=== PATIENT | female | born 1990 | race Caucasian/White ===

== ENCOUNTER 2018-01-01 12:06 | Emergency (ER) | payer MEDICAID, SELFPAY ==
[2018-01-01 12:23] VITALS: BP 123/84; PULSE 98; RESP 18; TEMP 36.8; O2SAT 99; BMI 26.4
--- NOTE | 2018-01-01 12:43 | HMH.EDUTC ---
[facility] [place] Disposition Clinical Impression: Dysmenorrhea Disposition: Home, Self-Care Condition on Discharge: Good Instructions: DI for Dysmenorrhea Additional Instructions: Start taking multivitamin. Follow up with Dr Fuchs. Referrals: Gael Hooper [Primary Care Provider] - Lam Fuchs MD [Staff Physician] - Time of Disposition: 12:47 Medical Decision Making - Jaime Inquiry Pt receiving controlled substance: No Vital Signs: 01/01/18 12:23 Temperature 98.2 F Temperature Source Temporal Artery Scan Pulse Rate [Right Radial] 98 H Respiratory Rate 18 Blood Pressure [Right Arm] 123/84 Blood Pressure Mean [Right Arm] 97 Blood Pressure Source [Right Arm] Automatic Cuff Blood Pressure Position [Right Arm] Sitting 02 Sat by Pulse Oximetry 99 Oxygen Delivery Method Room Air Orders (Tests/Meds): ORDERS Category Date Time Status Beta HCG, Quant [HCG,Quantitative] Stat Lab 01/01/18 12:29 Ordered CBC w/Auto Diff [Complete Blood Count Auto Diff] Stat Lab 01/01/18 12:28 Ordered CMP [Comprehensive Metabolic Panel] Stat Lab 01/01/18 12:29 Ordered TSH [Thyroid Stimulating Hormone] Stat Lab 01/01/18 12:29 Ordered [facility] [place] HPI - General Stated complaint: on Period for 2 months Time Seen by Provider: 01/01/18 12:25 Mode of Arrival: Family Vehicle Source of Information: Patient, Parent(s) Limitations: No Limitations Description of Symptoms (Recalled from Triage Doc. by RN): PT C/O ABNORMAL PERIODS,HEADACHE, INSTANT BRUISING WHEN HITTING ANYTHING. HEENT Symptoms (Recalled from RN notes): Yes (HEADACHE) Resp Symptoms (Recalled from RN notes): No Skin Symptoms (Recalled from RN notes): Yes (BRUISING) MS Symptoms (Recalled from RN notes): No Functional Status (Recalled from RN notes): NA - History of Present Illness Provider Complaint: Patient states she stays tired, bruises easily, has been having a period for two months and has a headache. Saw Dr Fuchs for similar problems 2 years ago but no cause was found. Saw Dr Hooper a few months ago and had normal labs. Associated symptoms: weakness Treatments prior to arrival: none - Related Data Allergies Allergy/AdvReac Type Severity Reaction Status Date / Time No Known Allergies Allergy Verified 01/01/18 12:36 - Worker's Comp Is this a Worker's Comp case?: No [facility] History I have reviewed the patient's past medical history: Yes Medical History: Denies:: Cancer, Diabetes Mellitus Type 1, Diabetes Mellitus Type 2, MRSA Amputation: No Fractures: No - Social History Smoking Status: Current every day smoker Tobacco Type: cigarettes Alcohol Intake: never - Psychiatric History Expresses thoughts of harming self/others: None Suicide Plan Description: No Plan ROS Obtained: Yes All systems reviewed & no additional complaints - Constitutional Constitutional: Reports fatigue, Reports malaise - Genitourinary Female Genitourinary: Reports as per HPI, Reports abnormal vaginal bleeding - Integumentary/Breasts Skin/Breast: Reports unusual bruising Physical Exam - General General appearance: alert, in no apparent distress - Head Head exam: atraumatic, normocephalic, normal inspection - Eye Eye exam: Present: normal appearance, PERRL, EOMI - ENT ENT exam: Present: normal exam, normal oropharynx, mucous membranes moist, TM's normal bilaterally, normal external ear exam - Neck Neck exam: Present: normal inspection, full ROM, trachea midline. Absent: meningismus, lymphadenopathy - Chest Chest inspection: Present: normal inspection, symmetric chest wall rise. Absent: tenderness - Respiratory Respiratory exam: Present: normal lung sounds bilaterally. Absent: respiratory distress - Cardiovascular Cardiovascular exam: Present: regular rate, normal rhythm. Absent: JVD - Abdominal Exam Abdominal exam: Present: soft, normal bowel sounds. Absent: distention, tenderness, guarding - Extremities Exam Extremities exam: Present: nor
--- NOTE | 2018-01-01 12:46 | ED_ITS ---
[facility] [place] Clinical Impression: Dysmenorrhea Disposition: Home, Self-Care Condition on Discharge: Good Instructions: DI for Dysmenorrhea Additional Instructions: Start taking multivitamin. Follow up with Dr Fuchs. Referrals: Gael Hooper [Primary Care Provider] - Lam Fuchs MD [Staff Physician] - Time of Disposition: 12:47 Medical Decision Making - Jaime Inquiry Pt receiving controlled substance: No Vital Signs: 01/01/18 12:23 Temperature 98.2 F Temperature Source Temporal Artery Scan Pulse Rate [Right Radial] 98 H Respiratory Rate 18 Blood Pressure [Right Arm] 123/84 Blood Pressure Mean [Right Arm] 97 Blood Pressure Source [Right Arm] Automatic Cuff Blood Pressure Position [Right Arm] Sitting 02 Sat by Pulse Oximetry 99 Oxygen Delivery Method Room Air Orders (Tests/Meds): ORDERS Category Date Time Status Beta HCG, Quant [HCG,Quantitative] Stat Lab 01/01/18 12:29 Ordered CBC w/Auto Diff [Complete Blood Count Auto Diff] Stat Lab 01/01/18 12:28 Ordered CMP [Comprehensive Metabolic Panel] Stat Lab 01/01/18 12:29 Ordered TSH [Thyroid Stimulating Hormone] Stat Lab 01/01/18 12:29 Ordered [facility] [place] - General Stated complaint: on Period for 2 months Time Seen by Provider: 01/01/18 12:25 Mode of Arrival: Family Vehicle Source of Information: Patient, Parent(s) Limitations: No Limitations Description of Symptoms (Recalled from Triage Doc. by RN): PT C/O ABNORMAL PERIODS,HEADACHE, INSTANT BRUISING WHEN HITTING ANYTHING. HEENT Symptoms (Recalled from RN notes): Yes (HEADACHE) Resp Symptoms (Recalled from RN notes): No Skin Symptoms (Recalled from RN notes): Yes (BRUISING) MS Symptoms (Recalled from RN notes): No Functional Status (Recalled from RN notes): NA - History of Present Illness Provider Complaint: Patient states she stays tired, bruises easily, has been having a period for two months and has a headache. Saw Dr Fuchs for similar problems 2 years ago but no cause was found. Saw Dr Hooper a few months ago and had normal labs. Associated symptoms: weakness Treatments prior to arrival: none - Related Data Allergies Allergy/AdvReac Type Severity Reaction Status Date / Time No Known Allergies Allergy Verified 01/01/18 12:36 - Worker's Comp Is this a Worker's Comp case?: No [facility] History I have reviewed the patient's past medical history: Yes Medical History: Denies:: Cancer, Diabetes Mellitus Type 1, Diabetes Mellitus Type 2, MRSA Amputation: No Fractures: No - Social History Smoking Status: Current every day smoker Tobacco Type: cigarettes Alcohol Intake: never - Psychiatric History Expresses thoughts of harming self/others: None Suicide Plan Description: No Plan ROS Obtained: Yes All systems reviewed & no additional complaints - Constitutional Constitutional: Reports fatigue, Reports malaise - Genitourinary Female Genitourinary: Reports as per HPI, Reports abnormal vaginal bleeding - Integumentary/Breasts Skin/Breast: Reports unusual bruising Physical Exam - General General appearance: alert, in no apparent distress - Head Head exam: atraumatic, normocephalic, normal inspection - Eye Eye exam: Present: normal appearance, PERRL, EOMI - ENT ENT exam: Present: normal exam, normal oropharynx, muc
[2018-01-01 12:48] VITALS: BP 119/85; PULSE 92; RESP 18; TEMP 36.8; O2SAT 100
[2018-01-01 12:49] LABS: Basophils % 0.6 % (0.1-2.0); Eosinophils # 0.2 K/mm3 (0.0-0.4); Eosinophils % 3.8 % (0.1-12.0); Hematocrit 39.7 % (37.0-47.0); Hemoglobin 12.7 g/dL (12.2-16.2); Lymphocytes # 1.7 K/mm3 (0.7-4.5); Lymphocytes % 29.1 K/mm3 (10-50); Mean Corpuscular HGB Conc 31.9 g/dL (31.8-35.4); Mean Corpuscular Hemoglobin 28.8 pg (27.0-31.2); Mean Corpuscular Volume 90.4 fl (81-99); Mean Platelet Volume 7.7 fl (7.4-10.4); Monocytes # 0.4 K/mm3 (0.1-1.0); Monocytes % 6.6 % (1.7-9.3); Neutrophils # 3.5 K/mm3 (1.8-7.8); Neutrophils % 59.9 % (37.0-80.0); Platelet Count 312 K/mm3 (142-424); Red Blood Count 4.39 M/mm3 (4.20-5.40); White Blood Count 5.8 K/mm3 (4.8-10.8)
[2018-01-01 13:11] LABS: Alanine Aminotransferase 20 U/L (12-78); Albumin Level 3.9 gm/dL (3.4-5.0); Albumin/Globulin Ratio 1.1 (1.1-1.8); Alkaline Phosphatase 80 U/L (46-116); Anion Gap 10.7 mEq/L (5-15); Aspartate Amino Transferase 13 U/L (15-37); Bilirubin,Total 0.2 mg/dL (0.2-1.0); Blood Urea Nitrogen 8 mg/dL (7-18); Calcium 8.4 mg/dL (8.5-10.1); Carbon Dioxide 29 mmol/L (21.0-32.0); Chloride 105 mmol/L (98-107); Creatinine Clearance Estimated 120 mL/min (0-300); Creatinine,Serum 0.68 mg/dL (0.55-1.02); Estimated Glomerular Filt Rate 104 ml/min (>60); GFR (African American) 126 ML/MIN (>60); Globulin 3.5 gm/dl (1.3-3.2); Glucose 112 mg/dL (74-106); Potassium 3.7 mmoL/L (3.5-5.1); Sodium 141 mmol/L (136-145); Thyroid Stimulating Hormone 1.52 uIU/ml (0.358-3.740); Total Protein,Serum 7.4 gm/dL (6.4-8.2)
[2018-01-01 13:12] LABS: HCG,Quantitative 0 mIU/mL
== END 2018-01-01 12:48 | disposition home or self-care (01) ==
PROVIDERS: Emergency Provider Physician Assistant; PCP Family Medicine
DX: N94.6 Dysmenorrhea, unspecified (principal); F17.210 Nicotine dependence, cigarettes, uncomplicated
CPT/HCPCS: 80053; 84443; 84702; 85025; 99201

== ENCOUNTER → 2018-05-23 09:44 | Outpatient (POV) | payer MEDICAID, SELFPAY | PROVIDERS: PCP Family Medicine; Visit Provider Otolaryngology | DX: Z00.00 Encounter for general adult medical examination without abnormal findings (principal) ==

== ENCOUNTER → 2018-06-23 11:00 | Outpatient (CLI) | payer MEDICAID, SELFPAY ==
--- NOTE | 2018-06-23 11:07 | XR_ITS ---
XR chest 2V HISTORY: ITS.REASON: PLEURITIC CHEST PAIN, SOA ORDERING PHYSICIAN: Tatianna Yoo PATIENT AGE: 27 years COMPARISON: None FINDINGS: The cardiomediastinal silhouette and pulmonary vascularity are within normal limits. The lungs are clear without infiltrates, suspicious nodules, or pleural effusions. No acute bony abnormalities. IMPRESSION: Negative chest, no acute finding
[2018-06-23 13:15] LABS: Basophils % 0.1 % (0.1-2.0); Eosinophils # 0.1 K/mm3 (0.0-0.4); Eosinophils % 0.4 % (0.1-12.0); Hematocrit 39.4 % (37.0-47.0); Hemoglobin 12.3 g/dL (12.2-16.2); Lymphocytes # 1.2 K/mm3 (0.7-4.5); Lymphocytes % 6.7 K/mm3 (10-50); Mean Corpuscular HGB Conc 31.3 g/dL (31.8-35.4); Mean Corpuscular Hemoglobin 28.4 pg (27.0-31.2); Mean Corpuscular Volume 90.7 fl (81-99); Monocytes # 0.4 K/mm3 (0.1-1.0); Neutrophils # 16.3 K/mm3 (1.8-7.8); Neutrophils % 90.9 % (37.0-80.0); Platelet Count 339 K/mm3 (142-424); Red Blood Count 4.34 M/mm3 (4.20-5.40); Red Cell Distribution Width 13.6 % (11.5-17.5)
[2018-06-23 13:17] LABS: MANUAL DIFFERENTIAL MANUAL DIFFERENTIAL (MANUAL DIFF)
[2018-06-23 13:42] LABS: Anion Gap 13.3 mEq/L (5-15); Blood Urea Nitrogen 4 mg/dL (7-18); Carbon Dioxide 27 mmol/L (21.0-32.0); Chloride 107 mmol/L (98-107); Creatinine,Serum 0.71 mg/dL (0.55-1.02); Estimated Glomerular Filt Rate 99 ml/min (>60); GFR (African American) 119 ML/MIN (>60); Glucose 119 mg/dL (74-106); Potassium 4.3 mmoL/L (3.5-5.1); Sodium 143 mmol/L (136-145)
[2018-06-23 14:11] LABS: D-Dimer < 100 ng/mL (0-400)
[2018-06-23 18:59] LABS: Lymphocytes % 7 % (10-50); Neutrophils % 86 % (42-76); Platelet Estimate Normal; RBC Morphology Normal; Total Cells Counted 100
== END ==
PROVIDERS: PCP Physician Assistant; Visit Provider Physician Assistant
DX: R06.02 Shortness of breath (principal); R07.1 Chest pain on breathing
CPT/HCPCS: 36415; 71046; 80048; 85007; 85025; 85378

== ENCOUNTER → 2018-12-04 10:53 | Outpatient (CLI) | payer MEDICAID, SELFPAY | PROVIDERS: PCP Physician Assistant; Visit Provider Physician Assistant | DX: R50.9 Fever, unspecified (principal) | CPT/HCPCS: 87275; 87276 ==

== ENCOUNTER 2020-07-24 12:46 | Emergency (ER) | payer MEDICAID, SELFPAY ==
--- NOTE | 2020-07-24 13:10 | XR_ITS ---
PROCEDURE: XR ANKLE RT MIN 3V CLINICAL INDICATION: pain/swelling right ankle COMPARISON: No exams were available for comparison FINDINGS: No fracture or dislocation. No lytic or blastic change. There is normal mineralization. The joint spaces are well-preserved. No significant degenerative/arthritic changes. No erosive changes evident. Other findings:None. IMPRESSION: No acute findings. Dictated by: Pierce Bender MD 07/24/2020 15:57 Pierce Bender MD in [place] 07/24/2020 15:58
[2020-07-24 13:15] VITALS: BP 107/71; PULSE 83; RESP 18; TEMP 36.7; O2SAT 98; BMI 25.4
--- NOTE | 2020-07-24 13:28 | HMH.EDUTC ---
[facility] [place] Disposition Clinical Impression: Ankle sprain Qualifiers: Encounter type: initial encounter Involved ligament of ankle: other ligament Laterality: right Qualified Code(s): S93.491A - Sprain of other ligament of right ankle, initial encounter Disposition: Home, Self-Care Condition on Discharge: Good Instructions: How to Use Crutches, Ankle Sprain, DI for Ankle Sprain Additional Instructions: *weight bearing as tolerated *RICE, Rest the extremity, Ice 15-20 minutes 3-4 times daily, Compress- wear the perico wrap as discussed as much as possible to help reduce swelling and pain, Elevate the extremity when at rest *Perico wrap is for support and help control swelling, use it except in the shower. Be sure that is not to tight but not to loose either *Elevate when resting *Ibuprofen every 6-8 hours as needed for pain an inflammation. If need something more can take Tylenol in between doses of Ibuprofen to help Call back to the [facility] later today for the official reading of your xray FOllow up with Family Doctor if no improvement or any worsening of symptoms Straight to ER if any life threatening symptoms Referrals: Gael Hooper [Primary Care Provider] - As needed Forms: Work/School Release Time of Disposition: 14:49 Medical Decision Making - Jaime Inquiry Pt receiving controlled substance: No Jaime was queried for this patient: No Vital Signs: 07/24/20 13:15 07/24/20 14:53 Temperature 98.0 F 98.0 F Temperature Source Oral Pulse Rate 83 Pulse Rate [Right Brachial] 83 Respiratory Rate 18 18 Blood Pressure 107/71 L Blood Pressure [Right Arm] 107/71 L Blood Pressure Mean [Right Arm] 83 Blood Pressure Source [Right Arm] Automatic Cuff Blood Pressure Position [Right Arm] Sitting 02 Sat by Pulse Oximetry 98 Oxygen Delivery Method Room Air - Lab Data Lab Results 07/24/20 13:10: Uric Acid 3.6 - Radiology Data #1 Image(s): Ankle Image Reviewed: Yes I reviewed the patient's radiology image Preliminary Findings: No Fracture Seen [facility] [place] HPI - General Stated complaint: rt ankle pain Time Seen by Provider: 07/24/20 13:15 Mode of Arrival: Ambulatory Source of Information: Patient Limitations: No Limitations Description of Symptoms (Recalled from Triage Doc. by RN): PATIENT C/O RIGHT ANKLE SWELLING AND PAIN THAT STARTED THIS MORNING. NO KNOWN INJURY HEENT Symptoms (Recalled from RN notes): No Resp Symptoms (Recalled from RN notes): No Skin Symptoms (Recalled from RN notes): No MS Symptoms (Recalled from RN notes): Yes Functional Status (Recalled from RN notes): WNL - History of Present Illness Provider Complaint: Patient states that she woke up this morning with swelling and pain in her right ankle States tht she doesnt recall doing anything to hurt it but she is unsure States that pain is worse with movement and when she tries to walk - Related Data Home Medications Medication Instructions Recorded Confirmed No Known Home Medications 07/24/20 07/24/20 Allergies Allergy/AdvReac Type Severity Reaction Status Date / Time No Known Allergies Allergy Verified 03/30/18 16:19 - Worker's Comp Is this a Worker's Comp case?: No [facility] History - Hepatitis A Screen Drug use history?: No High risk sexual behaviors?: No History of sexually transmitted infection?: No Currently employed?: No Childcare worker?: No Do you have indoor plumbing?: Yes Do you have electricity?: Yes Attestation statement:: This patient has been screened for Hepatitis A risk factors. I have reviewed the patient's past medical history: Yes Medical History: Denies:: Cancer, Diabetes Mellitus Type 1, Diabetes Mellitus Type 2, MRSA Other Surgeries: Yes: (x2) Amputation: No Fractures: No - Social History Smoking Status: Current every day smoker Tobacco Type: cigarettes # Packs/Day (cigarettes): 1 Alcohol Intake: never Alcohol Intake Frequency:: other Occupational Status: other Housing: house Fam
[2020-07-24 13:42] LABS: Uric Acid 3.6 mg/dl (2.5-6.2)
[2020-07-24 14:53] VITALS: BP 107/71; PULSE 83; RESP 18; TEMP 36.7; O2SAT 98
== END 2020-07-24 14:55 | disposition home or self-care (01) ==
PROVIDERS: Emergency Provider Nurse Practitioner; PCP Family Medicine
DX: S93.491A Sprain of other ligament of right ankle, initial encounter (principal); F17.210 Nicotine dependence, cigarettes, uncomplicated
CPT/HCPCS: 29515; 73610; 84550; 99202

== ENCOUNTER 2021-05-26 17:53 | Emergency (ER) | payer MEDICAID, SELFPAY ==
[2021-05-26 18:40] VITALS: BP 103/58; PULSE 61; RESP 17; TEMP 37.1; O2SAT 100; BMI 25.4
[2021-05-26 18:50] VITALS: BP 103/58; PULSE 61; RESP 17; TEMP 37.1; O2SAT 100
[2021-05-26 18:53] LABS: UTC Strep Screen (Rapid) Negative (Negative)
--- NOTE | 2021-05-26 18:55 | HMH.EDUTC ---
[facility] [place] Disposition Clinical Impression: Acute bronchitis Qualifiers: Bronchitis organism: unspecified organism Qualified Code(s): J20.9 - Acute bronchitis, unspecified Disposition: Home, Self-Care Condition on Discharge: Good Instructions: DI for Acute Bronchitis Additional Instructions: Drink plenty of fluids. Take tylenol or ibuprofen for pain or fever. Take the medications as directed. Follow up with your regular doctor. GO TO THE ER FOR ANY WORSENING SYMPTOMS Prescriptions: Brompheniramine/Pseudoephed/Dm [Bromfed Dm Cough Syrup] 5 ml PO Q6HP PRN #240 syrup PRN Reason: Cough Transmission Status: Received by [facility] methylPREDNISolone [Medrol] 4 mg PO DIRECTED 6 Days #21 tab.ds.pk Transmission Status: Received by [facility] Azithromycin [Z-Lucian 250mg Tab*] 250 mg PO UD DOSE PK #6 tab Transmission Status: Received by [facility] Referrals: Duglas Hooper MD [Primary Care Provider] - Forms: Work/School Release Time of Disposition: 19:03 Medical Decision Making - Medical Records Medical records reviewed: No: I reviewed the patient's medical records. - Jaime Inquiry Pt receiving controlled substance: No Vital Signs: 05/26/21 18:40 05/26/21 18:50 Temperature 98.8 F 98.8 F Temperature Source Oral Pulse Rate 61 Pulse Rate [Left] 61 Respiratory Rate 17 17 Blood Pressure 103/58 L Blood Pressure [Right Arm] 103/58 L Blood Pressure Mean [Right Arm] 73 02 Sat by Pulse Oximetry 100 [facility] [place] HPI - General Stated complaint: sore throat cough headache Time Seen by Provider: 05/26/21 18:55 Mode of Arrival: Ambulatory Source of Information: Patient Limitations: No Limitations Description of Symptoms (Recalled from Triage Doc. by RN): Pt c/o cough, sore throat and headache HEENT Symptoms (Recalled from RN notes): Yes Resp Symptoms (Recalled from RN notes): Yes Skin Symptoms (Recalled from RN notes): No MS Symptoms (Recalled from RN notes): No Functional Status (Recalled from RN notes): wnl - History of Present Illness Provider Complaint: She c/o cough, chest congestion for the past 1 week. She denies any fever/chills/body aches. She denies any covid exposure. She refuses a covid test today. - Related Data Previous Rx's Medication Instructions Recorded Azithromycin [Z-Lucian 250mg Tab*] 250 mg PO UD DOSE PK #6 tab 05/26/21 Brompheniramine/Pseudoephed/Dm 5 ml PO Q6HP PRN #240 syrup 05/26/21 [Bromfed Dm Cough Syrup] methylPREDNISolone [Medrol] 4 mg PO DIRECTED 6 Days #21 05/26/21 tab.ds.pk Allergies Allergy/AdvReac Type Severity Reaction Status Date / Time No Known Allergies Allergy Verified 05/26/21 18:50 - Worker's Comp Is this a Worker's Comp case?: No [facility] History - Hepatitis A Screen Drug use history?: No High risk sexual behaviors?: No History of sexually transmitted infection?: No Currently employed?: No Childcare worker?: No Do you have indoor plumbing?: Yes Do you have electricity?: Yes Attestation statement:: This patient has been screened for Hepatitis A risk factors. I have reviewed the patient's past medical history: Yes Medical History: Denies:: Cancer, Diabetes Mellitus Type 1, Diabetes Mellitus Type 2, MRSA Other Surgeries: Yes: (x2) Amputation: No Fractures: No - Social History Smoking Status: Current some day smoker Tobacco Type: cigarettes # Packs/Day (cigarettes): 1 Alcohol Intake: never Alcohol Intake Frequency:: other Occupational Status: other Housing: house Family Hx:: Diabetes, Hyperlipidemia, Hypertension ROS Obtained: Yes All systems reviewed & no additional complaints - Constitutional Constitutional: Reports system reviewed and no additional complaints, except as docu - Eyes Eyes: Reports system reviewed and no additional complaints, except as docu - ENT Ears, Nose, Mouth, and Throat: Reports system reviewed and no additional complaints, excep
== END 2021-05-26 19:05 | disposition home or self-care (01) ==
PROVIDERS: Emergency Provider Nurse Practitioner Family; PCP Family Medicine
DX: J20.9 Acute bronchitis, unspecified (principal)
CPT/HCPCS: 87880; 99202; G0463

== ENCOUNTER → 2021-11-28 13:10 | Outpatient (CLI) | payer MEDICAID, SELFPAY ==
[2021-11-28 13:29] LABS: Basophils # 0.1 K/mm3 (0-0.2); Basophils % 1.4 % (0.1-2.0); Eosinophils # 0.2 K/mm3 (0.0-0.4); Eosinophils % 2.7 % (0.1-12.0); Hematocrit 40.1 % (37.0-47.0); Hemoglobin 12.7 g/dL (12.2-16.2); Lymphocytes % 34.4 % (10-50); Mean Corpuscular HGB Conc 31.7 g/dL (31.8-35.4); Mean Corpuscular Hemoglobin 29.4 pg (27.0-31.2); Mean Corpuscular Volume 92.6 fl (81-99); Mean Platelet Volume 7.9 fl (7.4-10.4); Monocytes # 0.4 K/mm3 (0.1-1.0); Monocytes % 4.3 % (1.7-9.3); Neutrophils % 57.2 % (37.0-80.0); Platelet Count 328 K/mm3 (142-424); Red Blood Count 4.33 M/mm3 (4.20-5.40); Red Cell Distribution Width 15.2 % (11.5-17.5); White Blood Count 8.7 K/mm3 (4.8-10.8)
[2021-11-28 14:04] LABS: Hemoglobin A1C 5.2 % (4.0-6.0)
[2021-11-28 14:15] LABS: Alanine Aminotransferase 15 U/L (12-78); Albumin Level 4.7 g/dl (3.5-5.0); Alkaline Phosphatase 56 U/L (38-126); Anion Gap 10.5 mEq/L (5-15); Aspartate Amino Transferase 27 U/L (14-36); Bilirubin,Total 0.6 mg/dl (0.2-1.3); Blood Urea Nitrogen 10 mg/dl (7-17); Carbon Dioxide 29 mmol/L (22.0-30.0); Chloride 105 mmol/L (98-107); Cholesterol 186 mg/dl (140-200); Estimated Glomerular Filt Rate 98 ml/min (>60); GFR (African American) 118 ML/MIN (>60); Globulin 2.4 g/dL (1.3-3.2); Glucose 96 mg/dl (74-100); HDL Cholesterol 47 mg/dl (40-60); Potassium 4.5 mmoL/L (3.5-5.1); Sodium 140 mmol/L (136-145); Total Protein,Serum 7.1 g/dl (6.3-8.2); Triglycerides 68 mg/dl (30-150); VLDL Cholesterol 14 mg/dL (0-40)
[2021-11-28 14:26] LABS: Direct LDL Cholesterol 119.49 mg/dL (100-129)
== END ==
PROVIDERS: PCP Nurse Practitioner Family; Visit Provider Nurse Practitioner Family
DX: Z00.00 Encounter for general adult medical examination without abnormal findings (principal); Z82.49 Family history of ischemic heart disease and other diseases of the circulatory system; Z83.438 Family history of other disorder of lipoprotein metabolism and other lipidemia
CPT/HCPCS: 36415; 80053; 80061; 83036; 85025

== ENCOUNTER → 2023-01-25 10:46 | Outpatient (CLI) | payer MEDICAID, SELFPAY ==
--- NOTE | 2023-01-25 10:51 | US_ITS ---
PROCEDURE INFORMATION: Exam: US Right Breast, Complete Exam date and time: 01/25/2023 11:59 AM Age: 32 years old Clinical indication: 2 o'clock far posterior right breast palpable lump at edge of breast tissue near chest wall TECHNIQUE: Imaging protocol: Complete ultrasound of all four quadrants of the right breast and the retroareolar regions, including ultrasound of the axilla when performed. COMPARISON: No relevant prior studies available. FINDINGS: Breast: In the region of palpable concern, 2 o'clock axis 6 cm from the nipple, there is a heterogeneously hypoechoic horizontally oriented very superficial 0.8 x 0.5 x 0.9 cm mass with posterior acoustic enhancement. I suspect that this is within the erosive therefore reflect sebaceous cyst. As such, needle biopsy is not recommended due to click central for inflammatory response. IMPRESSION: The palpable lump along the 2 o'clock axis posteriorly appears to reflect a sebaceous cyst. Careful clinical correlation is required to confirm. If this cannot be confirmed clinically then surgical excision should be considered if clinically warranted. If palpable lump were to increase in size then repeat ultrasound should be performed at that time ASSESSMENT: BI-RADS category 2: Benign
== END ==
PROVIDERS: PCP Nurse Practitioner Family; Visit Provider Nurse Practitioner
DX: N63.10 Unspecified lump in the right breast, unspecified quadrant (principal)
CPT/HCPCS: 76641

== ENCOUNTER 2023-06-18 16:12 | Emergency (ER) | payer MEDICAID, SELFPAY ==
[2023-06-18 16:20] VITALS: BP 107/70; PULSE 81; RESP 20; TEMP 36.9; O2SAT 100; BMI 26.7
--- NOTE | 2023-06-18 16:28 | EXP.UTC ---
Discharge Plan Disposition Patient Disposition: Home, Self-Care Condition: Good Prescriptions Prescriptions: New ondansetron 4 mg tablet,disintegrating 4 mg PO Q8H PRN (Reason: nausea and vomiting) Qty: 10 0RF No Action azithromycin 250 MG tablet 250 mg PO UD DOSE PK Qty: 6 0RF Rx Instructions: Take two (2) tablets today, then one (1) tablet days #2 thru #5 methylprednisolone 4 MG tablets,dose pack 4 mg PO DIRECTED 6 Days Qty: 21 0RF [id number] 118 ML syrup 5 ml PO Q6HP PRN (Reason: Cough) Qty: 240 0RF Referrals Follow up/Referrals: Ying Freed APRN [Primary Care Provider] - See instructions Activity Restrictions/Add. Instructions Additional Instructions/Restrictions: *Monitor Temp, Over the counter Motrin or Tylenol as directed/as needed Tylenol every 4 hours and Motrin every 6 hours (as long as your family doctor has told you that you can take it) for fever or pain. and straight to ER if unable to lower temp less than 101.0 after medication given *Warm salt water gargles may help to soothe the throat *Throat Lozenges? *Warm fluids like tea with honey may help to soothe the throat? *Sleep elevated *Humidifier/Vaporizer Follow up IMMEDIATELY for new or worsening symptoms or no Noticeable improvement over the next 48-72 hours. 911 for difficulty breathing or swallowing You were tested for today for COVID19 your test result should be back in the next 24-48 hours, you may check your results on the [facility] [employer] Portal for the results Clinical Impressions Clinical Impression: Viral syndrome Stand Alone Forms Stand Alone Forms: Work/School Release Instructions Patient Instructions: DI for Viral Syndrome, DI for COVID-19 (Suspected or Confirmed ) Discharge ED Provider: Kayy Badillo [facility] [place] H[place] General Stated complaint: nausea, diarrhea, exposed to covid Mode of Arrival: Ambulatory Source of Information: Patient Limitations: No Limitations Time Seen by Provider: 06/18/23 16:28 Description of Symptoms (Recalled from Triage Doc. by RN): PATIENT C/O DIARRHEA AND NAUSEA X 2 DAYS. RECENTLY EXPOSED TO COVID HEENT Symptoms (Recalled from RN notes): No Resp Symptoms (Recalled from RN notes): No Skin Symptoms (Recalled from RN notes): No MS Symptoms (Recalled from RN notes): No Functional Status (Recalled from RN notes): WNL History of Present Illness Provider Complaint: Patient states that she has been having diarrhea and nausea for the last 2 days with nasal congestion States that she was recently around someone that tested positive for COVID and she came in wanting to get tested for COVID Related Data Previous Rx's Medication Instructions Recorded azithromycin 250 mg tablet 250 mg PO UD DOSE PK #6 tabs 05/26/21 [id number] 5 ml PO Q6HP PRN Cough ##240 05/26/21 2 mg-30 mg-10 mg/5 mL oral syrup methylprednisolone 4 mg tablets in 4 mg PO DIRECTED 6 days ##21 05/26/21 a dose pack ondansetron 4 mg disintegrating 4 mg PO Q8H PRN nausea and 06/18/23 tablet vomiting #10 tabs Allergies Allergy/AdvReac Type Severity Reaction Status Date / Time No Known Allergies Allergy Verified 05/26/21 18:50 Worker's Comp Is this a Worker's Comp case?: No [facility] Disclaimer: The information contained in this section may have been updated after the patient was seen, as this information can be updated by other users. Social History Smoking Status: Current some day smoker tobacco type: cigarettes packs per day: 1 second hand exposure: No alcohol intake: never current occupational status: other Travel in the last 8 weeks: None housing: house ROS Obtained: Yes All systems reviewed & no additional complaints except as documented and Yes Systems reviewed as appropriate & no additional complaints except as documented Constitutional Constitutional: Reports system reviewed and no a
[2023-06-18 16:36] VITALS: BP 107/70; PULSE 81; RESP 20; TEMP 36.9; O2SAT 100
== END 2023-06-18 16:43 | disposition home or self-care (01) ==
PROVIDERS: Emergency Provider Nurse Practitioner; PCP Nurse Practitioner Family
DX: R19.7 Diarrhea, unspecified (principal); R11.0 Nausea; B34.9 Viral infection, unspecified; F17.210 Nicotine dependence, cigarettes, uncomplicated; Z20.822 Contact with and (suspected) exposure to COVID-19
CPT/HCPCS: 99212; 99214; G0463

== ENCOUNTER 2023-12-05 11:20 | Emergency (ER) | payer MEDICAID, SELFPAY ==
[2023-12-05 11:45] VITALS: BP 111/71; PULSE 98; RESP 19; TEMP 36.9; O2SAT 98; BMI 25.2
--- NOTE | 2023-12-05 11:49 | EXP.UTC ---
Discharge Plan Disposition Patient Disposition: Home, Self-Care Condition: Good Prescriptions Prescriptions: New xltmslqzpwxwltt-btvbnpyxj-MG [Bromfed DM] 2-30-10 mg/5 mL Syrup 5 ml PO Q6H PRN (Reason: Cough) Qty: 240 0RF ondansetron 4 mg Tablet,Disintegrating 4 mg PO Q8H PRN (Reason: Nausea) Qty: 12 0RF No Action azithromycin 250 MG tablet 250 mg PO UD DOSE PK Qty: 6 0RF Rx Instructions: Take two (2) tablets today, then one (1) tablet days #2 thru #5 methylprednisolone 4 MG tablets,dose pack 4 mg PO DIRECTED 6 Days Qty: 21 0RF gwxpdzwgnzzrewd-wrpdtdvrx-JM 118 ML syrup 5 ml PO Q6HP PRN (Reason: Cough) Qty: 240 0RF ondansetron 4 mg tablet,disintegrating 4 mg PO Q8H PRN (Reason: nausea and vomiting) Qty: 10 0RF Referrals Follow up/Referrals: Ying Freed APRN [Primary Care Provider] - See instructions Activity Restrictions/Add. Instructions Additional Instructions/Restrictions: Drink plenty of fluids. Take tylenol or ibuprofen for pain or fever. Take the medications as directed. Follow up with your regular doctor. GO TO THE ER FOR ANY WORSENING SYMPTOMS Clinical Impressions Clinical Impression: Acute viral syndrome Stand Alone Forms Stand Alone Forms: Work/School Release Instructions Patient Instructions: DI for Viral Syndrome, Ondansetron Discharge ED Provider: Pro Canc[facility] General Stated complaint: vomiting, diarrhea, chills Time Seen by Provider: 12/05/23 11:49 History of Present Illness Provider Complaint: She states that for the past 2 days she has had fever, chills, body aches, malaise, n/v/d. Related Data Previous Rx's Medication Instructions Recorded azithromycin 250 mg tablet 250 mg PO UD DOSE PK #6 tabs 05/26/21 rcrdoztzxtusuet-shxxeulckzepdaw-BL 5 ml PO Q6HP PRN Cough ##240 05/26/21 2 mg-30 mg-10 mg/5 mL oral syrup methylprednisolone 4 mg tablets in 4 mg PO DIRECTED 6 days ##21 05/26/21 a dose pack ondansetron 4 mg disintegrating 4 mg PO Q8H PRN nausea and 06/18/23 tablet vomiting #10 tabs xcsyuaursryfphd-srzhiezjntyxdmt-HO 5 ml PO Q6H PRN Cough #240 mL 12/05/23 2 mg-30 mg-10 mg/5 mL oral syrup (Bromfed DM) ondansetron 4 mg disintegrating 4 mg PO Q8H PRN Nausea #12 tabs 12/05/23 tablet Allergies Allergy/AdvReac Type Severity Reaction Status Date / Time No Known Allergies Allergy Verified 05/26/21 18:50 [facility] Disclaimer: The information contained in this section may have been updated after the patient was seen, as this information can be updated by other users. Social History Smoking Status: Current some day smoker tobacco type: cigarettes packs per day: 1 second hand exposure: No alcohol intake: never current occupational status: other Travel in the last 8 weeks: None housing: house ROS Obtained: Yes All systems reviewed & no additional complaints except as documented Constitutional Constitutional: Reports chills and Reports fever(s) Eyes Eyes: Denies eye discharge ENT Ears, Nose, Mouth, and Throat: Reports as per HPI Cardiovascular Cardiovascular: Denies chest pain Respiratory Respiratory: Denies chest congestion and Reports cough Gastrointestinal Gastrointestingal: Reports nausea; Denies abdominal pain, constipation, cramping, diarrhea or vomiting Musculoskeletal Musculoskeletal: Denies arthralgias Integumentary/Breasts Skin/Breast: Denies rash Neurologic Neurologic: Denies paresthesias Physical Exam General General appearance: alert and in no apparent distress Head Head exam: atraumatic, normocephalic and normal inspection Eye Eye exam: Present normal appearance, PERRL and EOMI ENT ENT exam: Present normal exam, normal oropharynx, mucous membranes moist, TM's normal bilaterally and normal external ear exam Neck Neck exam: Present normal inspection, full ROM and trachea midline; Absent meningismus or lymphadenopathy Chest Chest inspection: Present normal inspection and symmetric chest wall rise; Absent tenderness Respiratory Respiratory exam: Present normal lung sounds bilaterally; Absent respiratory distress Cardiovascular Cardiovascular exam: Present regular rate and normal rhythm; Absent JVD Abdominal Exam Abdominal exam: Present soft and normal bowel sounds; Absent distention, tenderness or guarding Extremities Exam Extremities exam: Present normal inspection, full ROM and normal capillary refill; Absent calf tenderness Back Exam Back exam: Present normal inspection; Absent tenderness Neurological Exam Neurological exam: Present alert and oriented X3 Psychiatric Psychiatric exam: Present normal affect and normal mood Skin Skin exam: Present warm, dry, intact and normal color Lymphatic Lymphatic Findings: no adenopathy Medical Decision Making Medical Records Medical records reviewed: No I reviewed the patient's medical records. Jaime Inquiry Pt receiving controlled substance: No Lab Data Lab results reviewed: Yes I reviewed the patient's lab results.
[2023-12-05 12:04] LABS: UTC Influenza A Antigen Negative (Negative); UTC Influenza B Antigen Negative (Negative)
[2023-12-05 12:25] VITALS: BP 111/71; PULSE 98; RESP 19; TEMP 36.9; O2SAT 98
[2023-12-05 14:06] LABS: Adenovirus,PCR Not Detected (NotDetected); Coronavirus 19, PCR Not Detected (NotDetected); Coronavirus 229E Not Detected (NotDetected); Coronavirus NL63 Not Detected (NotDetected); Coronavirus OC43 Not Detected (NotDetected); Coronovirus HKU1,PCR Not Detected (NotDetected); Human Metapneumovirus Not Detected (NotDetected); Influenza A, PCR Not Detected (NotDetected); Influenza AH1, 2009 Not Detected (NotDetected); Influenza AH1, PCR Not Detected (NotDetected); Influenza AH3,PCR Not Detected (NotDetected); Influenza B, PCR Not Detected (NotDetected); Parainfluenza 1, PCR Not Detected (NotDetected); Parainfluenza 2, PCR Not Detected (NotDetected); Parainfluenza 3, PCR Not Detected (NotDetected); Parainfluenza 4, PCR Not Detected (NotDetected); Respiratory Syncytial Virus Not Detected (NotDetected); Rhinovirus/Enterovirus Not Detected (NotDetected)
== END 2023-12-05 12:28 | disposition home or self-care (01) ==
PROVIDERS: Emergency Provider Nurse Practitioner Family; PCP Nurse Practitioner Family
DX: R05.9 Cough, unspecified (principal); R50.9 Fever, unspecified; R11.2 Nausea with vomiting, unspecified; B34.9 Viral infection, unspecified; F17.210 Nicotine dependence, cigarettes, uncomplicated
CPT/HCPCS: 87632; 87635; 87804; 99212; 99214; G0463

== ENCOUNTER 2024-07-09 17:46 | Emergency (ER) | payer MEDICAID, SELFPAY ==
[2024-07-09 18:24] VITALS: BP 113/82; PULSE 82; RESP 20; TEMP 36.8; O2SAT 100; BMI 25.4
[2024-07-09 18:24] LABS: Coronavirus 19, PCR Not Detected (NotDetected); Influenza A, PCR Not Detected (NotDetected); Influenza B, PCR Not Detected (NotDetected)
--- NOTE | 2024-07-09 18:33 | ED_ITS ---
Discharge Plan Disposition Patient Disposition: Home, Self-Care Condition: Good Prescriptions Prescriptions: New methylprednisolone [Medrol (Lucian)] 4 mg tablets,dose pack See Rx Instructions .Route .COMPLEX 6 Days Qty: 21 0RF Rx Instructions: taper pack; bcedybbjbzbdhrj-dmhcypjdf-BT [Bromfed DM] 2-30-10 mg/5 mL syrup 10 ml PO Q6H PRN (Reason: cold symptoms) Qty: 200 0RF amoxicillin-pot clavulanate 875-125 mg Tablet 1 tab PO Q12H Qty: 20 0RF fluticasone propionate [Flonase Allergy Relief] 50 mcg/actuation spray,suspension 2 spray intranasal DAILY Qty: 16 0RF Rx Instructions: administer into each nostril daily No Action dextromethorphan polistirex [Delsym 12 hour] 30 mg/5 mL suspension,extended rel 12 hr 10 ml PO Q12H PRN (Reason: cough) Qty: 89 0RF pseudoephedrine HCl [Sudafed 12 Hour] 120 mg tablet extended release 120 mg PO Q12H PRN (Reason: nasal congestion) Qty: 20 0RF Referrals Follow up/Referrals: Ying Freed APRN [Primary Care Provider] - See instructions Activity Restrictions/Add. Instructions Additional Instructions/Restrictions: * Start antibiotic today. Be sure to complete entire prescription even if feeling better * Monitor temp. Tylenol every 4 hours as needed and / or ibuprofen every 6 hours as needed ( As long as your primary care physician has told you that it ok to take both. For fever/aches/pains ER if no less than 101 despite Tylenol or Motrin * Humidifier/vaporizer or hot steamy shower * *Bromfed may cause drowsiness. Know how it effects you before driving, caring for small child, or sending your child to school. Not other antihistamines/allergy medications while taking bromfed *Start steroid today. Helps with inflammation therefore, cough and wheezing. Follow directions on the package. Reviewed side effects. Patient reports taking them before. Follow up IMMEDIATELY for new or worsening of symptoms OR no noticeable improvement over the next 48-72 hours. 911 immediately for any life threatening symptoms such as chest pain or difficulty breathing Clinical Impressions Clinical Impression: Sinusitis, Bronchitis Stand Alone Forms Stand Alone Forms: Work/School Release Instructions Patient Instructions: Sinusitis, Acute Bronchitis, DI for Sinusitis Print Language Print Language: Bahraini Discharge ED Provider: Kayy Badillo [facility] [place] HPI General Stated complaint: cough, congestion Mode of Arrival: Ambulatory Source of Information: Patient Time Seen by Provider: 07/09/24 18:33 Description of Symptoms (Recalled from Triage Doc. by RN): COUGH, NASAL CONGESTION, CHILLS, CHEST TIGHT HEENT Symptoms (Recalled from RN notes): Yes Resp Symptoms (Recalled from RN notes): Yes Skin Symptoms (Recalled from RN notes): No MS Symptoms (Recalled from RN notes): No Functional Status (Recalled from RN notes): WNL History of Present Illness Provider Complaint: Patient states that she has been sick for about 2 weeks with sinus congestion and pressure, drainage in the back of her throat, cough and chest congestion States feels like she is trying to set up Bronchitis States she is an everyday smoker Related Data Previous Rx's ?Medication ?Instructions ?Recorded dextromethorphan polistirex 30 10 ml PO Q12H PRN cough #89 mL 06/17/24 mg/5 mL oral susp ext.release 12hr (Delsym 12 hour) pseudoephedrine HCl 120 mg 120 mg PO Q12H PRN nasal 06/17/24 tablet,extended release (Sudafed congestion #20 tabs 12 Hour) amoxicillin 875 mg-potassium 1 tab PO Q12H #20 tabs 07/09/24 clavulanate 125 mg tablet owmnsogsmbvwopw-okdpxcmjtshzchx-OT 10 ml PO Q6H PRN cold symptoms 07/09/24 2 mg-30 mg-10 mg/5 mL oral syrup #200 mL (Bromfed DM) fluticasone propionate 50 2 spray intranasal DAILY #16 grams 07/09/24 mcg/actuation nasal spray,suspension (Flonase Allergy Relief) methylprednisolone 4 mg tablets in See Rx Instructions .Route 07/09/24 a dose pack (Medrol (Lucian)) .COMPLEX 6 days #21 tabs Allergies Allergy/AdvReac Type Severity Reaction Status Date / Time No Known Allergies Allergy Verified 05/26/21 18:50 Worker's Comp Is this a Worker's Comp case?: No [facility] Disclaimer: The information contained in this section may have been updated after the patient was seen, as this information can be updated by other users. Surgical History (Updated 06/17/24 @ 16:08 by Estela Hernandez RN) History of tympanostomy tube placement History of tubal ligation History of section Social History Smoking Status: Current some day smoker tobacco type: cigarettes packs per day: 1 second hand exposure: No alcohol intake: never current occupational status: other Travel in the last 8 weeks: None housing: house ROS Obtained: Yes All systems reviewed & no additional complaints except as documented and Yes Systems reviewed as appropriate & no additional complaints except as documented Constitutional Constitutional: Reports system reviewed and no additional complaints, except as documented, Reports as per HPI, Reports body ache, Reports chills and Reports headache(s) ENT Ears, Nose, Mouth, and Throat: Reports system reviewed and no additional complaints, except as documented, Reports otalgia, Reports headache(s), Reports sinus pain and Reports sinus pressure Cardiovascular Cardiovascular: Reports system reviewed and no additional complaints, except as documented and Reports as per HPI Respiratory Respiratory: Reports system reviewed and no additional complaints, except as documented, Reports as per HPI, Reports chest congestion and Reports cough Gastrointestinal Gastrointestingal: Reports system reviewed and no additional complaints, except as documented and as per HPI Musculoskeletal Musculoskeletal: Reports system reviewed and no additional complaints, except as documented and Reports as per HPI Integumentary/Breasts Skin/Breast: Reports system reviewed and no additional complaints, except as documented and Reports as per HPI Neurologic Neurologic: Reports headache(s) Physical Exam General General appearance: alert and in no apparent distress ENT ENT exam: Present mucous membranes moist Expanded ENT Exam Nose exam: Present sinus tenderness Throat exam: Present other (PND noted ) Chest Chest inspection: Present normal inspection and symmetric chest wall rise Respiratory Respiratory exam: Present normal lung sounds bilaterally; Absent respiratory distress or wheezes Cardiovascular Cardiovascular exam: Present regular rate, normal rhythm and normal heart sounds Abdominal Exam Abdominal exam: Present soft and normal bowel sounds; Absent distention or tenderness Neurological Exam Neurological exam: Present alert, oriented X3 and normal gait Medical Decision Making Medical Records Screening: Per USPSTF and CDC recommendations, given the prevalence of disease in our region, it is our hospital?s policy to screen for HIV and viral Hepatitis for all patients aged 18 and over and those with ongoing risk factors. Jaime Inquiry Pt receiving controlled substance: No Jaime was queried for this patient: No Vital Signs: 07/09/24 18:24 Temperature 98.3 F Temperature Source Oral Pulse Rate [Left Brachial] 82 Respiratory Rate 20 Blood Pressure [Left Arm] 113/82 Blood Pressure Mean [Left Arm] 92 02 Sat by Pulse Oximetry 100 Orders (Tests/Meds): ORDERS Category Date Time Status Rapid PCR Covid and Flu A/B Stat Lab 07/09/24 18:20 Received
[2024-07-09 19:13] VITALS: BP 113/82; PULSE 82; RESP 20; TEMP 36.7
== END 2024-07-09 19:13 | disposition home or self-care (01) ==
PROVIDERS: Emergency Provider Nurse Practitioner; PCP Nurse Practitioner Family
DX: J20.9 Acute bronchitis, unspecified (principal); J01.90 Acute sinusitis, unspecified
CPT/HCPCS: 87636; 99212; 99214; G0463